=== PATIENT | female | born 1975 | race Caucasian/White ===

== ENCOUNTER → 2020-09-18 | Outpatient (CLI) | payer OTHER ==
[~2020-09-18] MED LIST: DOCO100C PO; DOCU-131 PO; ESOM20CA31 PO; GLYB2.5T2 PO; IBUP-1222 PO; OXYC1TAB14 PO; PREN1TAB60 PO
== END | disposition home or self-care (01) ==
LOC: CARD 10:40
PROVIDERS: ATTEND General Practice
DX: I10 Essential (primary) hypertension (principal); R00.2 Palpitations
CPT/HCPCS: 93225; 93226